=== PATIENT | female | born 1955 | race African-American/Black ===

== ENCOUNTER 2018-06-30 12:47 | Emergency (ER) | payer SELFPAY ==
[2018-06-30 12:57] VITALS: TEMP 99.3; BMI 30.9
--- NOTE | 2018-06-30 13:26 | PDOC ---
Attending Attestation - HPI HPI: 06/30/18 15:45 "The patient is a 62-year-old female with past medical history significant for HTN (Lisinopril and Amlodipine) and Chronic back pain (4 years ago, intermittent presentation) presents to the emergency department with a high blood pressure of 180/105. The patient presents with progressively increasing blood pressure for the past 4 days, with associated symptoms of dizziness with ambulation and palpitations. The patient states 3 days ago; her noted BP was 150 /104 thats been increasing. The patient reports she is compliant with her BP medication and alleve for pain. Denies fever, cough, diarrhea, hematochezia, melena, dysuria, hematuria, diplopia, blurry vision, nausea, and vomiting, chest pain, shortness of breath. Denies family history of thyroid problems. Allergies: Folic acid Social history: The patient recently moving to the [facility] from [facility]. No past or present use of tobacco, alcohol or recreational drug use. Surgical history: None reported PCP: Denies following up with a doctor. " - Medical Decision Making 06/30/18 15:46 Documentation prepared by Catalina White, acting as medical surgical tech for Jaime Alberts MD. <Catalina White - Last Filed: 06/30/18 15:45> - Resident Resident Name: Mk Elizabeth - ED Attending Attestation I have performed the following: I have examined & evaluated the patient, The case was reviewed & discussed with the resident, I agree w/resident's findings & plan, Exceptions are as noted - Physicial Exam PE: 06/30/18 16:06 see above - Medical Decision Making 06/30/18 13:37 62y F hx htn, presents for ealuation of feeling of dizziness when ambulating, generalized weakness. She checked her BP and it was 180/105. Pt endorses mild headache since last night. Denies any cp, sob, fever/chills cough, diarrhea, melena, bpr, n/v, no leg pain/swelling, hemotpysis, dysuria. pts hr noted to be tachycardic bp at 180 sbp exam unremakble including normal neuro ddx is wide and includes but not limited to : metabolic dernagement, anemia, dehydration, thyroid disease will ck labs, ekg, cxr, ua willl reassess A portion of this note was documented by scribe services under my direction. I have reviewed the details of the note, within reason, and agree with the documentation with the following case summary and management plan written by me 06/30/18 16:06 labs reviewed pts HR and bp improved HR wnl at 99 pt asypmtmoatic will dc the pt with pmd fu return precautions were discussed I discussed the physical exam findings, ancillary test results and final diagnoses with the patient. I answered all of the patient's questions. The patient was satisfied with the care received and felt comfortable with the discharge plan and treatment plan. The patient will call their primary care physician within 24 hours to arrange follow-up and will return to the Emergency Department with any new, persistent or worsening symptoms. <Jaime Alberts - Last Filed: 06/30/18 19:08> Heart Score/ECG Review - ECG Impressions Comment:: 06/30/18 19:07 Twelve-lead EKG was performed and reviewed by me. There is normal sinus rhythm with a rate of 135 normal axis normal r wave progression sinus tachycardia <Jaime Alberts - Last Filed: 06/30/18 19:08>
[2018-06-30] MEDS ORDERED: SODIUM CHLORIDE 1,000 ML IV ONE (13:49)
--- NOTE | 2018-06-30 14:06 | PDOC ---
History of Present Illness - General Chief Complaint: Blood Pressure Problem Stated Complaint: Blood Pressure Problem Time Seen by Provider: 06/30/18 13:07 History Source: Patient Exam Limitations: No Limitations - History of Present Illness Initial Comments: 06/30/18 15:00 62 yo female pmh of hypertension and recently traveled from [facility] to the [facility] 6 months ago presents with 3 day complaint od generalized weakness, dizziness, elevated BP at home and a mild WILLIS last night. Pt states she felt weak and dizzy 3 days ago promting her to check her BP which usually is well controlled on medications in the 130s but found consistent pressures above 150 at home and 180 /105 today. Pt takes BP medication regularly and did take medication today. Pt found to be tachicardic in the 130s on arrival. Denies CP, SOB, palpitations, N/ V/F/C, lower leg swelling. Past History - Past Medical History Allergies/Adverse Reactions: Allergies Allergy/AdvReac Type Severity Reaction Status Date / Time folic acid Allergy Verified 06/30/18 12:57 Home Medications: Ambulatory Orders Amlodipine Besylate [Norvasc -] 10 mg PO DAILY 06/30/18 Lisinopril [Prinivil] 10 mg PO DAILY 06/30/18 COPD: No CHF: No HTN: Yes - Suicide/Smoking/Psychosocial Hx Smoking History: Never smoked Information on smoking cessation initiated: No Hx Alcohol Use: No Drug/Substance Use Hx: No Substance Use Type: None *Physical Exam - Vital Signs Last Vital Signs Temp Pulse Resp BP Pulse Ox 99.3 F 145 H 19 180/90 H 99 06/30/18 12:54 06/30/18 12:54 06/30/18 12:54 06/30/18 13:48 06/30/18 12:54 ED Treatment Course - LABORATORY CBC & Chemistry Diagram: 06/30/18 13:51 06/30/18 13:51 *DC/Admit/Observation/Transfer Diagnosis at time of Disposition: High blood pressure Qualifiers: Hypertension type: unspecified Qualified Code(s): I10 - Essential (primary) hypertension - Discharge Dispostion Disposition: HOME Condition at time of disposition: Stable Decision to Admit order: No - Referrals Referrals: [facility] [place] [facility] [place] [Provider Group] - Patient Instructions Printed Discharge Instructions: DI for High Blood Pressure Additional Instructions: Please follow up the the Primary Care Clinic referred in the discharge paper work within the next 2 days. Please return to the Emergency Room for new or worsening symptoms including but not limited to: severe headaches, chest pain, shortness of breath, calf tenderness or pain, severe abdominal pain. Please continue taking your home dose blood pressure medication as prescribed. Thank you. - Post Discharge Activity
[2018-06-30 14:21] LABS: BASO % 0.8 % (0-2.0); EOS % 1.6 % (0-4.5); HEMATOCRIT 43.5 % (32.4-45.2); HEMOGLOBIN 13.9 GM/dL (10.7-15.3); LYMPH % 25.1 % (8-40); MEAN CELL VOLUME 90.8 fl (80-96); MEAN PLT VOLUME 8.9 fl (7.5-11.1); MONO % 7.6 % (3.8-10.2); NEUT % 64.9 % (42.8-82.8); PLATELET COUNT 220 K/MM3 (134-434); RBC 4.79 M/mm3 (3.60-5.2); RDW 13.5 % (11.6-15.6); WHITE BLOOD COUNT 4.9 K/mm3 (4.0-10.0)
[2018-06-30 14:33] LABS: INR 0.97 (0.83-1.09); PROTHROMBIN TIME (PATIENT) 11.4 SEC (9.7-13.0)
[2018-06-30 14:50] LABS: ALBUMIN 4.3 g/dl (3.4-5.0); ALK PHOS 106 U/L (45-117); ANION GAP 5 MMOL/L (8-16); BILIRUBIN,TOTAL 0.3 mg/dL (0.2-1); BLOOD UREA NITROGEN 16 mg/dL (7-18); CALCIUM 9.9 mg/dL (8.5-10.1); CHLORIDE 106 mmol/L (98-107); CO2 27 mmol/L (21-32); CREATININE 0.9 mg/dL (0.55-1.3); GLUCOSE,RANDOM 106 mg/dL (74-106); MAGNESIUM 2.4 mg/dL (1.8-2.4); POTASSIUM 3.8 mmol/L (3.5-5.1); SGOT/AST 20 U/L (15-37); SGPT/ALT 24 U/L (13-61); SODIUM 139 mmol/L (136-145); TOT PROT 8.4 g/dl (6.4-8.2)
--- NOTE | 2018-06-30 14:50 | EKG ---
Test Reason : Blood Pressure : / mmHG Vent. Rate : 135 BPM Atrial Rate : 135 BPM P-R Int : 158 ms QRS Dur : 070 ms QT Int : 278 ms P-R-T Axes : 066 038 057 degrees QTc Int : 417 ms SINUS TACHYCARDIA BIATRIAL ENLARGEMENT POSSIBLE ANTERIOR INFARCT , AGE UNDETERMINED ABNORMAL ECG NO PREVIOUS ECGS AVAILABLE Confirmed by MD Mata Edward ([id number]) on 06/30/2018 2:50:33 PM Referred By: Confirmed By:Noah Mata MD
[2018-06-30 15:50] VITALS: BP 144/85; PULSE 100
== END 2018-06-30 16:46 | disposition home or self-care (01) ==
LOC: JER 12:47
PROC: 3E0337Z Introduction of Electrolytic and Water Balance Substance into Peripheral Vein, Percutaneous Approach (ICD-10-PCS; principal; 2018-06-30)
DX: I10 Essential (primary) hypertension (principal); R00.0 Tachycardia, unspecified
CPT/HCPCS: 36415; 70450-TC; 71045-TC-FY; 80053; 83735; 84443; 85025; 85610; 93005; 93010; 99284-25; J7030

== ENCOUNTER 2019-07-16 09:27 | Day surgery (SDC) | payer OTHER ==
[2019-07-15 12:58] VITALS: BMI 30.2
[2019-07-16 12:16] VITALS: TEMP 97.7
[2019-07-16 13:28] VITALS: BP 108/68; PULSE 83
== END 2019-07-16 12:55 | disposition home or self-care (01) ==
LOC: JASU-ENDO 09:27
PROVIDERS: ATTEND Internal Medicine Gastroenterology
PROC: 0DJD8ZZ Inspection of Lower Intestinal Tract, Via Natural or Artificial Opening Endoscopic (ICD-10-PCS; principal; 2019-07-16 10:00)
DX: Z12.11 Encounter for screening for malignant neoplasm of colon (principal); K64.8 Other hemorrhoids; I10 Essential (primary) hypertension; E66.9 Obesity, unspecified

== ENCOUNTER 2023-06-22 21:19 | Inpatient (IN) | payer OTHER ==
[2023-06-22 21:25] VITALS: BMI 33.3
[2023-06-22] MEDS ORDERED: ACETAMINOPHEN 1000 MG/100 ML BAG IVPB ONE (21:49)
[2023-06-22] MEDS ORDERED: ACETAMINOPHEN INJECTION 100 ML IVPB ONE (21:56)
[2023-06-22 22:31] LABS: EPI CELLS 34 /uL (0-25.1); HYALINE CASTS 1 /uL (0-3.1); PH,URINE 7.5 (5.0-8.0); URINE APPEARANCE CLEAR; URINE BACTERIA 3340 /uL (0-1359); URINE BILIRUBIN NEGATIVE (NEGATIVE); URINE COLOR YELLOW; URINE GLUCOSE (UA) NEGATIVE (NEGATIVE); URINE KETONE TRACE (NEGATIVE); URINE LEUK ESTERASE TRACE (NEGATIVE); URINE NITRITE NEGATIVE (NEGATIVE); URINE PROTEIN TRACE (NEGATIVE); URINE RBC 23 /uL (0-23.9); URINE WBC 22 /uL (0-25.8)
[2023-06-22 22:35] LABS: BASO % 0.3 % (0-2.0); EOS % 0.6 % (0-4.5); HEMATOCRIT 37.6 % (32.4-45.2); HEMOGLOBIN 12.9 GM/dL (10.7-15.3); LYMPH % 13.1 % (8-40); MCH 30.8 pg (25.7-33.7); MCHC 34.3 g/dl (32.0-36.0); MEAN CELL VOLUME 89.7 fl (80-96); MEAN PLT VOLUME 8.7 fl (7.5-11.1); MONO % 6.1 % (3.8-10.2); NEUT % 79.9 % (42.8-82.8); PLATELET COUNT 273 10^3/uL (134-434); RBC 4.19 M/mm3 (3.60-5.2); WHITE BLOOD COUNT 9.6 K/mm3 (4.0-10.0)
[2023-06-22 22:51] LABS: POTASSIUM 3.9 mmol/L (3.5-5.1)
[2023-06-22 22:53] LABS: CALCIUM 9.5 mg/dL (8.5-10.1)
[2023-06-22 22:54] LABS: ALBUMIN 3.8 g/dl (3.4-5.0); BLOOD UREA NITROGEN 13.5 mg/dL (7-18); MAGNESIUM 2.2 mg/dL (1.8-2.4)
[2023-06-22 22:57] LABS: CREATININE 0.9 mg/dL (0.55-1.3)
[2023-06-22 22:59] LABS: BILIRUBIN,TOTAL 0.5 mg/dL (0.2-1); TOT PROT 7.9 g/dl (6.4-8.2)
[2023-06-23] MEDS ORDERED: CEFTRIAXONE 1 GM in DEXTROSE 5%-WATER - 100 ML IVPB ONE (01:49)
[2023-06-23] MEDS ORDERED: CEFTRIAXONE 1 GM/50 ML BAG ONE (02:00)
[2023-06-23 02:32] LABS: INR 1.05 (0.83-1.09); PROTHROMBIN TIME (PATIENT) 12.2 SEC (9.7-13.0)
[2023-06-23 02:35] LABS: ACTIVATED PTT 28.6 SECONDS (25.2-36.5)
[2023-06-23] MEDS ORDERED: SODIUM CHLORIDE 1,000 ML IV SCH (04:45)
[2023-06-23] MEDS ORDERED: CEFTRIAXONE 1,000 MG in DEXTROSE 5%-WATER - 50 ML IVPB ONE (07:54)
[2023-06-23 08:01] LABS: HEMATOCRIT 35.1 % (32.4-45.2); HEMOGLOBIN 11.3 GM/dL (10.7-15.3); MCH 29.6 pg (25.7-33.7); MCHC 32.3 g/dl (32.0-36.0); MEAN CELL VOLUME 91.7 fl (80-96); PLATELET COUNT 234 10^3/uL (134-434); RBC 3.82 M/mm3 (3.60-5.2); RDW 14.3 % (11.6-15.6); WHITE BLOOD COUNT 12.5 K/mm3 (4.0-10.0)
[2023-06-23 08:18] LABS: INR 1.16 (0.83-1.09); PROTHROMBIN TIME (PATIENT) 13.4 SEC (9.7-13.0)
[2023-06-23 08:20] LABS: ACTIVATED PTT 31.6 SECONDS (25.2-36.5)
[2023-06-23 08:21] LABS: CALCIUM 8.9 mg/dL (8.5-10.1)
[2023-06-23] MEDS ORDERED: BUPIVACAINE HCL/PF 0.5% (5MG/ML) 10 ML VIAL ONE (08:21)
[2023-06-23 08:22] LABS: ALBUMIN 3.4 g/dl (3.4-5.0); BLOOD UREA NITROGEN 14.5 mg/dL (7-18); MAGNESIUM 2.1 mg/dL (1.8-2.4)
[2023-06-23 08:25] LABS: CREATININE 0.9 mg/dL (0.55-1.3)
[2023-06-23 08:27] LABS: BILIRUBIN,TOTAL 0.6 mg/dL (0.2-1); TOT PROT 7.3 g/dl (6.4-8.2)
[2023-06-23] MEDS ORDERED: FENTANYL CITRATE/PF 50 MCG/ML VIAL ONE ×3 (08:56→12:33)
[2023-06-23] MEDS ORDERED: PROPOFOL 40 ML ONE (08:56)
[2023-06-23] MEDS ORDERED: SUCCINYLCHOLINE CHLORIDE 200 MG/10 ML SYRINGE ONE (08:57)
[2023-06-23] MEDS ORDERED: MIDAZOLAM HCL 2 MG/2 ML SINGLE DOSE VIAL ONE (08:57)
[2023-06-23] MEDS ORDERED: ROCURONIUM BROMIDE 50 MG/5 ML SYRINGE ONE (08:58)
[2023-06-23] MEDS ORDERED: ACETAMINOPHEN 1000 MG/100 ML BAG IVPB PRN (09:25)
[2023-06-23] MEDS ORDERED: ONDANSETRON 4 MG/2 ML VIAL IVPUSH PRN ×2 (09:25→12:16)
[2023-06-23] MEDS ORDERED: LACTATED RINGERS SOLUTION 1,000 ML IV SCH (09:30)
[2023-06-23] MEDS ORDERED: ASPIRIN 81 MG CHEWABLE TABLETS PO SCH (10:00)
[2023-06-23] MEDS ORDERED: ENOXAPARIN NA (PORCINE) 40 MG/0.4 ML DISP.SYRIN SQ SCH ×2 (10:00)
[2023-06-23] MEDS ORDERED: LABETALOL HCL 100 MG TABLET (FP) PO SCH (10:00)
[2023-06-23] MEDS ORDERED: amLODIPine BESYLATE 10 MG TABLET (FP) PO SCH (10:00)
[2023-06-23] MEDS ORDERED: ACETAMINOPHEN 1000 MG/100 ML BAG IVPB ONE (10:08)
[2023-06-23] MEDS ORDERED: METOPROLOL TARTRATE 5 MG/5 ML VIAL ONE (10:26)
[2023-06-23] MEDS ORDERED: BUPIVACAINE HCL/PF 0.5% (5 MG/ML) 30 ML VIAL IJ ONE ×2 (10:27)
[2023-06-23] MEDS ORDERED: INSULIN SLIDING SCALE (NOVOLOG) 1 VIAL SQ SCH (11:00)
[2023-06-23] MEDS ORDERED: SUGAMMADEX SODIUM 200 MG/2 ML VIAL ONE (11:03)
[2023-06-23] MEDS ORDERED: ONDANSETRON 4 MG/2 ML VIAL ONE (12:13)
[2023-06-23] MEDS ORDERED: KETOROLAC TROMETHAMINE 30 MG/1 ML VIAL IVPUSH PRN (12:19)
[2023-06-23] MEDS ORDERED: oxyCODONE HCL 5 MG TABLET PO PRN (12:19)
[2023-06-23] MEDS: LACTATED RINGERS SOLUTION 1,000 ML IV SCH (13:00)
[2023-06-23] MEDS: ACETAMINOPHEN 1000 MG/100 ML BAG IVPB PRN ×2 (14:19→23:44)
[2023-06-23] MEDS: INSULIN SLIDING SCALE (NOVOLOG) 1 VIAL SQ SCH ×2 (18:35→22:18)
[2023-06-23] MEDS: GABAPENTIN 300 MG CAPSULE PO SCH (21:58)
[2023-06-23] MEDS: LABETALOL HCL 100 MG TABLET (FP) PO SCH (21:58)
[2023-06-23] MEDS ORDERED: GABAPENTIN 300 MG CAPSULE PO SCH (22:00)
[2023-06-23] MEDS ORDERED: CEFTRIAXONE 1 GM in DEXTROSE 5%-WATER - 50 ML IVPB SCH (22:00)
[2023-06-23 23:51] VITALS: RESP 18
[2023-06-24] MEDS: INSULIN SLIDING SCALE (NOVOLOG) 1 VIAL SQ SCH ×3 (06:23→22:14)
[2023-06-24 09:15] LABS: BASO % 0.1 % (0-2.0); HEMATOCRIT 32.9 % (32.4-45.2); HEMOGLOBIN 10.5 GM/dL (10.7-15.3); LYMPH % 7.9 % (8-40); MCH 29.4 pg (25.7-33.7); MCHC 31.8 g/dl (32.0-36.0); MEAN CELL VOLUME 92.4 fl (80-96); MEAN PLT VOLUME 8.8 fl (7.5-11.1); PLATELET COUNT 229 10^3/uL (134-434); RBC 3.56 M/mm3 (3.60-5.2); RDW 14.3 % (11.6-15.6); WHITE BLOOD COUNT 12.7 K/mm3 (4.0-10.0)
[2023-06-24 09:33] LABS: CALCIUM 8.7 mg/dL (8.5-10.1)
[2023-06-24 09:34] LABS: BLOOD UREA NITROGEN 13.3 mg/dL (7-18)
[2023-06-24 09:37] LABS: CREATININE 0.8 mg/dL (0.55-1.3)
[2023-06-24 09:38] LABS: BILIRUBIN,TOTAL 0.4 mg/dL (0.2-1)
[2023-06-24 09:41] LABS: TOT PROT 6.3 g/dl (6.4-8.2)
[2023-06-24 09:46] LABS: ALBUMIN 2.6 g/dl (3.4-5.0)
[2023-06-24] MEDS: LABETALOL HCL 100 MG TABLET (FP) PO SCH ×2 (10:00→22:13)
[2023-06-24] MEDS: ENOXAPARIN NA (PORCINE) 40 MG/0.4 ML DISP.SYRIN SQ SCH (10:00)
[2023-06-24] MEDS: amLODIPine BESYLATE 10 MG TABLET (FP) PO SCH (10:00)
[2023-06-24] MEDS: ACETAMINOPHEN 325 MG TABLET (FP) PO PRN (13:23)
[2023-06-24] MEDS: LACTATED RINGERS SOLUTION 1,000 ML IV SCH (17:44)
[2023-06-24] MEDS: GABAPENTIN 300 MG CAPSULE PO SCH (22:13)
[2023-06-25] MEDS: CEFTRIAXONE 2 GM in DEXTROSE 5%-WATER 100 ML IVPB SCH ×2 (00:24→22:03)
[2023-06-25] MEDS: ACETAMINOPHEN 325 MG TABLET (FP) PO PRN ×2 (01:28→17:08)
[2023-06-25] MEDS: INSULIN SLIDING SCALE (NOVOLOG) 1 VIAL SQ SCH ×4 (07:30→23:46)
[2023-06-25] MEDS: ENOXAPARIN NA (PORCINE) 40 MG/0.4 ML DISP.SYRIN SQ SCH (09:29)
[2023-06-25] MEDS: amLODIPine BESYLATE 10 MG TABLET (FP) PO SCH (09:29)
[2023-06-25] MEDS: LABETALOL HCL 100 MG TABLET (FP) PO SCH ×2 (09:29→22:03)
[2023-06-25 10:25] LABS: BASO % 0.3 % (0-2.0); EOS % 2.2 % (0-4.5); HEMATOCRIT 33.7 % (32.4-45.2); HEMOGLOBIN 11.6 GM/dL (10.7-15.3); LYMPH % 16.2 % (8-40); MCH 31.2 pg (25.7-33.7); MCHC 34.4 g/dl (32.0-36.0); MEAN CELL VOLUME 90.8 fl (80-96); MEAN PLT VOLUME 9.1 fl (7.5-11.1); MONO % 6.9 % (3.8-10.2); NEUT % 74.4 % (42.8-82.8); PLATELET COUNT 270 10^3/uL (134-434); RBC 3.71 M/mm3 (3.60-5.2); RDW 14.4 % (11.6-15.6); WHITE BLOOD COUNT 10.2 K/mm3 (4.0-10.0)
[2023-06-25 11:03] LABS: POTASSIUM 3.8 mmol/L (3.5-5.1)
[2023-06-25 11:05] LABS: CALCIUM 8.5 mg/dL (8.5-10.1)
[2023-06-25 11:06] LABS: ALBUMIN 2.9 g/dl (3.4-5.0); BLOOD UREA NITROGEN 12.6 mg/dL (7-18)
[2023-06-25 11:09] LABS: CREATININE 0.8 mg/dL (0.55-1.3)
[2023-06-25 11:11] LABS: BILIRUBIN,TOTAL 0.6 mg/dL (0.2-1); TOT PROT 6.6 g/dl (6.4-8.2)
[2023-06-25] MEDS: LACTATED RINGERS SOLUTION 1,000 ML IV SCH (17:54)
[2023-06-25] MEDS: GABAPENTIN 300 MG CAPSULE PO SCH (22:03)
[2023-06-26] MEDS: LABETALOL HCL 100 MG TABLET (FP) PO SCH ×2 (11:02→22:40)
[2023-06-26] MEDS: amLODIPine BESYLATE 10 MG TABLET (FP) PO SCH (11:02)
[2023-06-26] MEDS: ENOXAPARIN NA (PORCINE) 40 MG/0.4 ML DISP.SYRIN SQ SCH (11:02)
[2023-06-26] MEDS: INSULIN SLIDING SCALE (NOVOLOG) 1 VIAL SQ SCH ×4 (13:08→22:41)
[2023-06-26] MEDS: LACTATED RINGERS SOLUTION 1,000 ML IV SCH (17:54)
[2023-06-26] MEDS: GABAPENTIN 300 MG CAPSULE PO SCH (22:40)
[2023-06-26] MEDS: CEFTRIAXONE 2 GM in DEXTROSE 5%-WATER 100 ML IVPB SCH (22:41)
[2023-06-27] MEDS ORDERED: DOCUSATE NA 100 MG/10 ML UNIT-DOSE CUPS PO ONE (01:30)
[2023-06-27] MEDS ORDERED: MAG HYDROX/AL HYDROX/SIMETH 30 ML UNIT-DOSE CUP PO ONE (01:30)
[2023-06-27] MEDS: POLYETHYLENE GLYCOL (HEALTHYLAX) 3350 17 GM PACKET PO SCH ×3 (01:54→21:39)
[2023-06-27] MEDS: ACETAMINOPHEN 325 MG TABLET (FP) PO PRN ×3 (05:41→17:06)
[2023-06-27] MEDS: INSULIN SLIDING SCALE (NOVOLOG) 1 VIAL SQ SCH ×4 (06:46→21:44)
[2023-06-27 09:32] LABS: HEMATOCRIT 34.7 % (32.4-45.2); HEMOGLOBIN 11.7 GM/dL (10.7-15.3); MCH 30.3 pg (25.7-33.7); MCHC 33.7 g/dl (32.0-36.0); MEAN CELL VOLUME 89.8 fl (80-96); MEAN PLT VOLUME 8.6 fl (7.5-11.1); PLATELET COUNT 344 10^3/uL (134-434); RBC 3.87 M/mm3 (3.60-5.2); RDW 14.4 % (11.6-15.6)
[2023-06-27 09:50] LABS: POTASSIUM 3.9 mmol/L (3.5-5.1)
[2023-06-27 10:00] LABS: BLOOD UREA NITROGEN 10.3 mg/dL (7-18)
[2023-06-27 10:03] LABS: CREATININE 0.7 mg/dL (0.55-1.3)
[2023-06-27 10:04] LABS: BILIRUBIN,TOTAL 0.4 mg/dL (0.2-1); TOT PROT 6.7 g/dl (6.4-8.2)
[2023-06-27] MEDS: amLODIPine BESYLATE 10 MG TABLET (FP) PO SCH (10:31)
[2023-06-27] MEDS: ENOXAPARIN NA (PORCINE) 40 MG/0.4 ML DISP.SYRIN SQ SCH (10:31)
[2023-06-27] MEDS: LABETALOL HCL 100 MG TABLET (FP) PO SCH ×2 (10:31→21:39)
[2023-06-27 10:51] LABS: ANISOCYTOSIS 0; MACROCYTOSIS 0
[2023-06-27] MEDS: LACTATED RINGERS SOLUTION 1,000 ML IV SCH (13:48)
[2023-06-27] MEDS: GABAPENTIN 300 MG CAPSULE PO SCH (21:40)
[2023-06-27] MEDS: CEFTRIAXONE 2 GM in DEXTROSE 5%-WATER 100 ML IVPB SCH (21:41)
[2023-06-28] MEDS: LACTATED RINGERS SOLUTION 1,000 ML IV SCH ×2 (06:40→18:55)
[2023-06-28] MEDS: INSULIN SLIDING SCALE (NOVOLOG) 1 VIAL SQ SCH ×3 (08:09→21:18)
[2023-06-28 09:15] LABS: BASO % 0.4 % (0-2.0); EOS % 3.1 % (0-4.5); HEMATOCRIT 34.9 % (32.4-45.2); LYMPH % 20.3 % (8-40); MCH 29.1 pg (25.7-33.7); MCHC 31.6 g/dl (32.0-36.0); MEAN CELL VOLUME 92.1 fl (80-96); MONO % 5.7 % (3.8-10.2); NEUT % 70.5 % (42.8-82.8); PLATELET COUNT 362 10^3/uL (134-434); RBC 3.79 M/mm3 (3.60-5.2); RDW 14.3 % (11.6-15.6)
[2023-06-28 09:42] LABS: POTASSIUM 4.1 mmol/L (3.5-5.1)
[2023-06-28 09:46] LABS: ALBUMIN 2.9 g/dl (3.4-5.0)
[2023-06-28 09:47] LABS: BLOOD UREA NITROGEN 10.6 mg/dL (7-18); CALCIUM 8.7 mg/dL (8.5-10.1)
[2023-06-28 09:51] LABS: BILIRUBIN,TOTAL 0.2 mg/dL (0.2-1); CREATININE 0.7 mg/dL (0.55-1.3)
[2023-06-28 09:52] LABS: TOT PROT 6.3 g/dl (6.4-8.2)
[2023-06-28] MEDS: amLODIPine BESYLATE 10 MG TABLET (FP) PO SCH (10:01)
[2023-06-28] MEDS: POLYETHYLENE GLYCOL (HEALTHYLAX) 3350 17 GM PACKET PO SCH ×3 (10:01→21:17)
[2023-06-28] MEDS: LABETALOL HCL 100 MG TABLET (FP) PO SCH ×2 (10:01→21:17)
[2023-06-28] MEDS: ENOXAPARIN NA (PORCINE) 40 MG/0.4 ML DISP.SYRIN SQ SCH (10:01)
[2023-06-28] MEDS: GABAPENTIN 300 MG CAPSULE PO SCH ×2 (10:39→21:17)
[2023-06-28] MEDS: CEFTRIAXONE 2 GM in DEXTROSE 5%-WATER 100 ML IVPB SCH (21:17)
[2023-06-28] MEDS ORDERED: SENNOSIDES 8.8 MG/5 ML SYRUP PO SCH (22:00)
[2023-06-29] MEDS: amLODIPine BESYLATE 10 MG TABLET (FP) PO SCH (09:53)
[2023-06-29] MEDS: LABETALOL HCL 100 MG TABLET (FP) PO SCH ×2 (09:54→21:24)
[2023-06-29] MEDS: SENNOSIDES 8.8 MG/5 ML SYRUP PO SCH ×2 (09:57→21:24)
[2023-06-29] MEDS: GABAPENTIN 300 MG CAPSULE PO SCH ×2 (09:57→21:25)
[2023-06-29] MEDS: POLYETHYLENE GLYCOL (HEALTHYLAX) 3350 17 GM PACKET PO SCH ×4 (09:57→21:38)
[2023-06-29] MEDS: ENOXAPARIN NA (PORCINE) 40 MG/0.4 ML DISP.SYRIN SQ SCH (09:57)
[2023-06-29] MEDS: INSULIN SLIDING SCALE (NOVOLOG) 1 VIAL SQ SCH ×4 (10:01→21:29)
[2023-06-29 10:12] LABS: HEMATOCRIT 33.1 % (32.4-45.2); HEMOGLOBIN 10.9 GM/dL (10.7-15.3); MCH 29.8 pg (25.7-33.7); MEAN CELL VOLUME 90.4 fl (80-96); MEAN PLT VOLUME 8.1 fl (7.5-11.1); PLATELET COUNT 360 10^3/uL (134-434); RBC 3.66 M/mm3 (3.60-5.2); RDW 14.6 % (11.6-15.6); WHITE BLOOD COUNT 7.6 K/mm3 (4.0-10.0)
[2023-06-29 10:32] LABS: POTASSIUM 4.1 mmol/L (3.5-5.1)
[2023-06-29 10:36] LABS: ALBUMIN 2.9 g/dl (3.4-5.0); BLOOD UREA NITROGEN 10.1 mg/dL (7-18)
[2023-06-29 10:39] LABS: CREATININE 0.7 mg/dL (0.55-1.3)
[2023-06-29 10:41] LABS: BILIRUBIN,TOTAL 0.3 mg/dL (0.2-1); TOT PROT 6.3 g/dl (6.4-8.2)
[2023-06-29] MEDS: LACTATED RINGERS SOLUTION 1,000 ML IV SCH (17:15)
[2023-06-29] MEDS: CEFTRIAXONE 2 GM in DEXTROSE 5%-WATER 100 ML IVPB SCH (21:24)
[2023-06-30] MEDS: INSULIN SLIDING SCALE (NOVOLOG) 1 VIAL SQ SCH (06:50)
[2023-06-30] MEDS: LABETALOL HCL 100 MG TABLET (FP) PO SCH (09:47)
[2023-06-30] MEDS: POLYETHYLENE GLYCOL (HEALTHYLAX) 3350 17 GM PACKET PO SCH ×2 (09:48→09:49)
[2023-06-30] MEDS: SENNOSIDES 8.8 MG/5 ML SYRUP PO SCH (09:48)
[2023-06-30] MEDS: amLODIPine BESYLATE 10 MG TABLET (FP) PO SCH (09:48)
[2023-06-30] MEDS: GABAPENTIN 300 MG CAPSULE PO SCH (09:48)
[2023-06-30] MEDS: ENOXAPARIN NA (PORCINE) 40 MG/0.4 ML DISP.SYRIN SQ SCH (09:49)
[2023-06-30 11:26] VITALS: BP 136/72; PULSE 84; TEMP 99.1
== END 2023-06-30 12:22 | disposition home or self-care (01) | DRG 225 ==
LOC: JER 21:19 → JERBED 06-23 03:34 → OBSVTOIN 06-23 04:42 → J5S 06-23 13:24
PROVIDERS: ADMIT Internal Medicine
PROC: 0DTJ4ZZ Resection of Appendix, Percutaneous Endoscopic Approach (ICD-10-PCS; principal; 2023-06-23 09:30)
DX: K35.32 Acute appendicitis with perforation, localized peritonitis, and gangrene, without abscess (principal); K21.9 Gastro-esophageal reflux disease without esophagitis; I10 Essential (primary) hypertension; K76.89 Other specified diseases of liver; G62.9 Polyneuropathy, unspecified; R50.9 Fever, unspecified; E78.5 Hyperlipidemia, unspecified; D72.829 Elevated white blood cell count, unspecified; E66.9 Obesity, unspecified; Z68.33 Body mass index [BMI] 33.0-33.9, adult
CPT/HCPCS: 36415; 74177-TC; 80053; 81003; 82962; 83036; 83605; 83690; 83735; 84100; 84484; 85025; 85027; 85610; 85730; 86850; 86900; 86901; 87040; 87086; 88304-TC; 93005; 93010; 94760; 97116-GP; 97161-GP; 99285-25; G0378